=== PATIENT | male | born 1965 | race Caucasian/White ===

== ENCOUNTER → 2016-12-16 | Outpatient (REF) | payer OTHER ==
[~2016-12-16] MED LIST: ASPI81TA7 PO; ATOR40TA PO; DOCU10CA PO; LISI-542 PO; METF500T PO; OXYB5TA PO; PERC5TAB6 PO; ZOFR8TAB PO
[2016-12-16 14:34] LABS: ALBUMIN/GLOBULIN RATIO 1.18 (1.00-1.93); ALKALINE PHOSPHATASE 100 U/L (45-117); ALT/SGPT 40 U/L (12-78); ANION GAP 8 MEQ/L (8-16); AST/SGOT 12 U/L (15-37); BILIRUBIN,TOTAL 0.7 MG/DL (0.2-1.0); BLOOD UREA NITROGEN 26 MG/DL (7-18); CARBON DIOXIDE LEVEL 29 MEQ/L (21-32); CHLORIDE LEVEL 102 MEQ/L (98-107); CHOLESTEROL LEVEL 126 MG/DL (<200); CREATININE FOR GFR 1.18 MG/DL (0.70-1.30); FREE T4 1.18 NG/DL (0.76-1.46); GLOMERULAR FILTRATION RATE > 60.0 (>60); GLUCOSE, FASTING 224 MG/DL (70-105); POTASSIUM SERUM 4.7 MEQ/L (3.5-5.1); SODIUM LEVEL 139 MEQ/L (136-145); TOTAL PROTEIN 7.4 GM/DL (6.4-8.2); TRIGLYCERIDES LEVEL 101 MG/DL (<150)
== END ==
LOC: M LABDRWAD 12:42
PROVIDERS: ATTEND Physician Assistant
DX: E78.00 Pure hypercholesterolemia, unspecified (principal); E11.65 Type 2 diabetes mellitus with hyperglycemia

== ENCOUNTER → 2017-01-28 | Outpatient (REF) | payer OTHER | LOC: M SMT 12:58 | PROVIDERS: ATTEND Urology | DX: Z85.51 Personal history of malignant neoplasm of bladder (principal) ==

== ENCOUNTER → 2017-03-18 | Outpatient (REF) | payer OTHER ==
[2017-03-18 12:48] LABS: BASO % 0.4 % (0.0-1.0); EOS # 0.1 K/mm3 (0.0-0.50); EOS % 1.5 % (0.0-3.0); LARGE UNSTAINED CELL # 0.2 K/mm3 (0.0-0.4); LYMPH # 1.8 K/mm3 (1.5-4.5); LYMPH % 22.6 % (24.0-44.0); MEAN CORPUSCULAR HEMOGLOBIN 30.1 pg (27.0-33.0); MEAN CORPUSCULAR HGB CONC 34.7 g/dl (32.0-36.5); MEAN CORPUSCULAR VOLUME 86.7 fl (80.0-96.0); MONO # 0.5 K/mm3 (0.0-0.8); MONO % 6.8 % (0.0-5.0); NEUTROPHILS # 4.8 K/mm3 (1.8-7.7); NEUTROPHILS % 66.6 % (36.0-66.0); PLATELET COUNT, AUTOMATED 150 k/mm3 (150-450); RED CELL DISTRIBUTION WIDTH 12.5 % (11.5-14.5); WHITE BLOOD COUNT 7.2 K/mm3 (4.0-10.0)
[2017-03-18 13:06] LABS: ALBUMIN 4.1 GM/DL (3.2-5.2); ALBUMIN/GLOBULIN RATIO 1.28 (1.00-1.93); ALKALINE PHOSPHATASE 99 U/L (45-117); ALT/SGPT 58 U/L (12-78); ANION GAP 6 MEQ/L (8-16); AST/SGOT 28 U/L (15-37); BILIRUBIN,TOTAL 0.6 MG/DL (0.2-1.0); BLOOD UREA NITROGEN 27 MG/DL (7-18); CALCIUM LEVEL 8.7 MG/DL (8.5-10.1); CARBON DIOXIDE LEVEL 27 MEQ/L (21-32); CHLORIDE LEVEL 102 MEQ/L (98-107); CHOLESTEROL LEVEL 92 MG/DL (<200); CREATININE FOR GFR 1.08 MG/DL (0.70-1.30); GLOMERULAR FILTRATION RATE > 60.0 (>56); GLUCOSE, FASTING 100 MG/DL (70-105); POTASSIUM SERUM 4.4 MEQ/L (3.5-5.1); SODIUM LEVEL 135 MEQ/L (136-145); TOTAL PROTEIN 7.3 GM/DL (6.4-8.2); TRIGLYCERIDES LEVEL 101 MG/DL (<150)
== END ==
LOC: M LABDRWAD 12:14
PROVIDERS: ATTEND Family Medicine
DX: E11.9 Type 2 diabetes mellitus without complications (principal); I10 Essential (primary) hypertension; E78.00 Pure hypercholesterolemia, unspecified

== ENCOUNTER 2017-06-17 09:51 | Outpatient (CLI) | payer OTHER ==
[~2017-06-17] VITALS: Ht 175.3 cm; Wt 93.0 kg
[~2017-06-17 09:51] MED LIST changes: +ASPI1TAB15 PO; -ASPI81TA7 PO; -ATOR40TA PO; +ATOR40TA75 PO; +JANU100T PO; +JARD1TAB PO; +METF10004 PO; -METF500T PO; +METF500T13 PO; -OXYB5TA PO; +OXYB5TAB10 PO; +PERC5TAB12 PO; -PERC5TAB6 PO
[2017-06-17] MEDS ORDERED: LR 1,000 ML IV SCH (10:00)
[2017-06-17] MEDS ORDERED: PROPOFOL 200 MG/20 ML VIAL As Ordered ONE ×3 (10:42→11:10)
--- NOTE | 2017-06-17 11:25 | ROOR ---
Patient Name: Vikas Ford Procedure Date: 06/17/2017 10:39 AM Date of : 1965 Age: 52 Room: [facility] Gender: Male Note Status: Finalized Procedure: Colonoscopy Indications: Screening for colorectal malignant neoplasm, This is the patient's first colonoscopy Providers: Bradford Mcgrath MD Referring MD: Terrie MONTANA DO Requesting Provider: Medicines: Monitored Anesthesia Care Complications: No immediate complications. Procedure: Pre-Anesthesia Assessment: - Prior to the procedure, a History and Physical was performed, and patient medications and allergies were reviewed. The patient is competent. The risks and benefits of the procedure and the sedation options and risks were discussed with the patient. All questions were answered and informed consent was obtained. Patient identification and proposed procedure were verified by the physician, the nurse and the anesthesiologist in the procedure room. Mental Status Examination: alert and oriented. Airway Examination: normal oropharyngeal airway and neck mobility. CV Examination: regular rate and rhythm. Prophylactic Antibiotics: The patient does not require prophylactic antibiotics. Prior Anticoagulants: The patient has taken no previous anticoagulant or antiplatelet agents. ASA Grade Assessment: III - A patient with severe systemic disease. After reviewing the risks and benefits, the patient was deemed in satisfactory condition to undergo the procedure. The anesthesia plan was to use monitored anesthesia care (MAC). Immediately prior to administration of medications, the patient was re-assessed for adequacy to receive sedatives. The heart rate, respiratory rate, oxygen saturations, blood pressure, adequacy of pulmonary ventilation, and response to care were monitored throughout the procedure. The physical status of the patient was re-assessed after the procedure. The Colonoscope was introduced through the anus and advanced to the cecum, identified by appendiceal orifice and ileocecal valve. The colonoscopy was somewhat difficult due to a tortuous colon. The patient tolerated the procedure well. The quality of the bowel preparation was good. Findings: The perianal and digital rectal examinations were normal. Two sessile polyps were found in the distal ascending colon. The polyps were small in size. These polyps were removed with a hot snare. Resection and retrieval were complete. Estimated blood loss: none. A 3 mm polyp was found at 30 cm proximal to the anus. The polyp was sessile. Fulguration to ablate the lesion by snare was successful. A 6 mm polyp was found at 30 cm proximal to the anus. The polyp was semi-pedunculated. The polyp was removed with a hot snare. Resection and retrieval were complete. Estimated blood loss: none. A 4 mm polyp was found in the rectum. The polyp was sessile. The polyp was removed with a hot snare. Resection and retrieval were complete. Impression: - Two small polyps in the distal ascending colon, removed with a hot snare. Resected and retrieved. - One 3 mm polyp at 30 cm proximal to the anus. Treated with a hot snare. - One 6 mm polyp at 30 cm proximal to the anus, removed with a hot snare. Resected and retrieved. - One 4 mm polyp in the rectum, removed with a hot snare. Resected and retrieved. Recommendation: - Await pathology results. - Telephone endoscopist for pathology results in 1 week. Bradford Mcgrath MD 06/17/2017 11:25:06 AM Number of Addenda: 0 Note Initiated On: 06/17/2017 10:39 AM Estimated Blood Loss: Estimated blood loss: none.
[2017-06-17 11:40] VITALS: BP 120/82
== END 2017-06-17 11:46 | disposition home or self-care (01) ==
LOC: M OPP 09:51
PROVIDERS: ATTEND Surgery
DX: Z12.11 Encounter for screening for malignant neoplasm of colon (principal); D12.2 Benign neoplasm of ascending colon; D12.5 Benign neoplasm of sigmoid colon; K62.1 Rectal polyp; I10 Essential (primary) hypertension; E78.5 Hyperlipidemia, unspecified; E11.9 Type 2 diabetes mellitus without complications; R06.83 Snoring; Z85.51 Personal history of malignant neoplasm of bladder; Z92.21 Personal history of antineoplastic chemotherapy; Z87.891 Personal history of nicotine dependence; G47.30 Sleep apnea, unspecified; Z79.82 Long term (current) use of aspirin; Z79.84 Long term (current) use of oral hypoglycemic drugs; Z79.899 Other long term (current) drug therapy

== ENCOUNTER → 2017-11-10 | Outpatient (CLI) | payer OTHER ==
[2017-11-10 13:36] LABS: BASO % 0.3 % (0.0-1.0); EOS # 0.1 10^3/uL (0.0-0.50); EOS % 1.5 % (0.0-3.0); HEMATOCRIT 49.6 % (42.0-52.0); HEMOGLOBIN 16.8 g/dl (14.0-18.0); IMMATURE GRANULOCYTE % 0.2 % (0-0); LYMPH # 1.9 10^3/uL (1.5-4.5); LYMPH % 29.3 % (24.0-44.0); MEAN CORPUSCULAR HEMOGLOBIN 29.2 pg (27.0-33.0); MEAN CORPUSCULAR HGB CONC 33.9 g/dl (32.0-36.5); MEAN CORPUSCULAR VOLUME 86.1 fl (80.0-96.0); MONO # 0.6 10^3/uL (0.0-0.8); MONO % 8.5 % (0.0-5.0); NEUTROPHILS # 3.9 10^3/uL (1.8-7.7); NEUTROPHILS % 60.2 % (36.0-66.0); PLATELET COUNT, AUTOMATED 159 10^3/uL (150-450); RED BLOOD COUNT 5.76 10^6/uL (4.30-6.10); RED CELL DISTRIBUTION WIDTH 11.8 % (11.5-14.5); WHITE BLOOD COUNT 6.5 10^3/uL (4.0-10.0)
[2017-11-10 13:51] LABS: ALBUMIN 4.1 GM/DL (3.2-5.2); ALBUMIN/GLOBULIN RATIO 1.24 (1.00-1.93); ALKALINE PHOSPHATASE 102 U/L (45-117); ALT/SGPT 34 U/L (12-78); ANION GAP 7 MEQ/L (8-16); AST/SGOT 11 U/L (7-37); BILIRUBIN,TOTAL 0.7 MG/DL (0.2-1.0); BLOOD UREA NITROGEN 26 MG/DL (7-18); CALCIUM LEVEL 8.4 MG/DL (8.5-10.1); CARBON DIOXIDE LEVEL 27 MEQ/L (21-32); CHLORIDE LEVEL 103 MEQ/L (98-107); CHOLESTEROL LEVEL 191 MG/DL (<200); CHOLESTEROL RISK RATIO 5.026 (<5); CREATININE FOR GFR 1.04 MG/DL (0.70-1.30); GLOMERULAR FILTRATION RATE > 60.0 (>56); GLUCOSE, FASTING 260 MG/DL (70-100); HDL CHOLESTEROL 38 MG/DL (>40); NON-HDL-C 153 MG/DL; POTASSIUM SERUM 4.7 MEQ/L (3.5-5.1); SODIUM LEVEL 137 MEQ/L (136-145); TOTAL PROTEIN 7.4 GM/DL (6.4-8.2); TRIGLYCERIDES LEVEL 105 MG/DL (<150)
[2017-11-10 13:58] LABS: ESTIMATED AVERAGE GLUCOSE 214 MG/DL (60-110); HEMOGLOBIN A1c 9.1 %
== END ==
LOC: M SMT 08:51
DX: E11.65 Type 2 diabetes mellitus with hyperglycemia (principal)

== ENCOUNTER → 2018-01-21 | Outpatient (REF) | payer OTHER | LOC: M SMT 17:17 | DX: Z85.51 Personal history of malignant neoplasm of bladder (principal) | CPT/HCPCS: 88108 ==

== ENCOUNTER → 2018-02-09 | Outpatient (CLI) | payer OTHER ==
[2018-02-09 14:13] LABS: ANION GAP 7 MEQ/L (8-16); BLOOD UREA NITROGEN 26 MG/DL (7-18); CALCIUM LEVEL 8.4 MG/DL (8.5-10.1); CARBON DIOXIDE LEVEL 26 MEQ/L (21-32); CHLORIDE LEVEL 105 MEQ/L (98-107); CREATININE FOR GFR 1.06 MG/DL (0.70-1.30); GLOMERULAR FILTRATION RATE > 60.0 (>56); GLUCOSE, FASTING 118 MG/DL (70-100); POTASSIUM SERUM 4.5 MEQ/L (3.5-5.1); SODIUM LEVEL 138 MEQ/L (136-145)
[2018-02-09 14:42] LABS: CREATININE, URINE 62.5 MG/DL; MALB URINE SIEMENS 13.5 MG/L; MAU/CREAT RATIO 21.6 MCG/MG (0.0-30.0)
[2018-02-09 15:01] LABS: ESTIMATED AVERAGE GLUCOSE 154 MG/DL (60-110)
== END ==
LOC: M SMT 08:38
DX: E11.65 Type 2 diabetes mellitus with hyperglycemia (principal)
CPT/HCPCS: 83036

== ENCOUNTER 2018-05-10 04:42 | Emergency (ER) | payer OTHER ==
[2018-05-10] MEDS ORDERED: diphenhydrAMINE INJ 50MG/ML VIAL (J1200) As Ordered (04:44)
[2018-05-10] MEDS: diphenhydrAMINE INJ 50MG/ML VIAL (J1200) IV (05:04)
[2018-05-10] MEDS: dexameTHASONE 20 MG/5 ML VIAL (J1100) IV ×2 (05:05→05:27)
== END 2018-05-10 07:10 | disposition home or self-care (01) ==
LOC: M ED 04:42
DX: T78.3XXA Angioneurotic edema, initial encounter (principal); R22.0 Localized swelling, mass and lump, head; I10 Essential (primary) hypertension; Z79.899 Other long term (current) drug therapy; Z79.82 Long term (current) use of aspirin; Z79.84 Long term (current) use of oral hypoglycemic drugs
CPT/HCPCS: J1200

== ENCOUNTER → 2018-07-03 | Outpatient (REF) | payer OTHER | LOC: M LAB REF 15:56 | DX: D48.5 Neoplasm of uncertain behavior of skin (principal) ==

== ENCOUNTER → 2018-07-23 | Outpatient (REF) | payer OTHER | LOC: M SMT 13:11 | DX: C67.9 Malignant neoplasm of bladder, unspecified (principal) | CPT/HCPCS: 88108 ==

== ENCOUNTER → 2018-10-12 | Outpatient (REF) | payer OTHER ==
[~2018-10-12] MED LIST changes: -ZOFR8TAB PO; +ZOFR8TAB24 PO
[2018-10-12 13:07] LABS: BASO % 0.3 % (0.0-1.0); EOS # 0.1 10^3/uL (0.0-0.50); HEMATOCRIT 49.2 % (42.0-52.0); HEMOGLOBIN 16.3 g/dl (13.5-17.5); LYMPH # 1.2 10^3/uL (1.5-4.5); LYMPH % 16.3 % (24.0-44.0); MEAN CORPUSCULAR HEMOGLOBIN 28.5 pg (27.0-33.0); MEAN CORPUSCULAR HGB CONC 33.1 g/dl (32.0-36.5); MONO # 0.8 10^3/uL (0.0-0.8); MONO % 10.6 % (0.0-5.0); NEUTROPHILS # 5.2 10^3/uL (1.8-7.7); NEUTROPHILS % 71.5 % (36.0-66.0); PLATELET COUNT, AUTOMATED 141 10^3/uL (150-450); RED BLOOD COUNT 5.72 10^6/uL (4.30-6.10); WHITE BLOOD COUNT 7.3 10^3/uL (4.0-10.0)
[2018-10-12 13:11] LABS: ALBUMIN 3.8 GM/DL (3.2-5.2); ALT/SGPT 30 U/L (12-78); BILIRUBIN,TOTAL 1.3 MG/DL (0.2-1.0); BLOOD UREA NITROGEN 17 MG/DL (7-18); CALCIUM LEVEL 8.6 MG/DL (8.5-10.1); CARBON DIOXIDE LEVEL 26 MEQ/L (21-32); CHLORIDE LEVEL 102 MEQ/L (98-107); CHOLESTEROL LEVEL 188 MG/DL (<200); CHOLESTEROL RISK RATIO 5.222 (<5); FREE T4 1.21 NG/DL (0.76-1.46); GLOMERULAR FILTRATION RATE > 60.0 (>56); GLUCOSE, FASTING 181 MG/DL (70-100); HDL CHOLESTEROL 36 MG/DL (>40); LDL CHOLESTEROL 135 MG/DL (<100); NON-HDL-C 152 MG/DL; POTASSIUM SERUM 4.3 MEQ/L (3.5-5.1); SODIUM LEVEL 138 MEQ/L (136-145); THYROID STIMULATING HORMONE 0.686 uIU/ML (0.358-3.740); TOTAL PROTEIN 7.5 GM/DL (6.4-8.2); TRIGLYCERIDES LEVEL 87 MG/DL (<150)
[2018-10-12 14:34] LABS: HEMOGLOBIN A1c 11.4 %
== END ==
LOC: M LABDRWAD 12:07
PROVIDERS: ATTEND Family Medicine
DX: E11.65 Type 2 diabetes mellitus with hyperglycemia (principal); E78.6 Lipoprotein deficiency

== ENCOUNTER → 2019-02-02 | Outpatient (REF) | payer OTHER | LOC: M SMT 17:15 | PROVIDERS: ATTEND Urology | DX: C67.9 Malignant neoplasm of bladder, unspecified (principal) ==

== ENCOUNTER → 2019-05-10 | Outpatient (CLI) | payer OTHER ==
[2019-05-10 10:22] LABS: BASO % 0.6 % (0.0-1.0); EOS # 0.1 10^3/uL (0.0-0.50); EOS % 2.4 % (0.0-3.0); HEMATOCRIT 47.5 % (42.0-52.0); HEMOGLOBIN 15.9 g/dl (13.5-17.5); LYMPH # 1.5 10^3/uL (1.5-4.5); MEAN CORPUSCULAR HEMOGLOBIN 29.7 pg (27.0-33.0); MEAN CORPUSCULAR HGB CONC 33.5 g/dl (32.0-36.5); MEAN CORPUSCULAR VOLUME 88.8 fl (80.0-96.0); MONO # 0.5 10^3/uL (0.0-0.8); MONO % 9.8 % (0.0-5.0); NEUTROPHILS # 3.2 10^3/uL (1.8-7.7); NEUTROPHILS % 58.8 % (36.0-66.0); PLATELET COUNT, AUTOMATED 167 10^3/uL (150-450); RED BLOOD COUNT 5.35 10^6/uL (4.30-6.10); WHITE BLOOD COUNT 5.4 10^3/uL (4.0-10.0)
[2019-05-10 10:36] LABS: HEMOGLOBIN A1c 10.3 %
[2019-05-10 10:42] LABS: ALBUMIN 3.9 GM/DL (3.2-5.2); ALT/SGPT 33 U/L (12-78); BILIRUBIN,TOTAL 0.7 MG/DL (0.2-1.0); BLOOD UREA NITROGEN 25 MG/DL (7-18); CALCIUM LEVEL 8.8 MG/DL (8.5-10.1); CARBON DIOXIDE LEVEL 28 MEQ/L (21-32); CHLORIDE LEVEL 101 MEQ/L (98-107); CHOLESTEROL LEVEL 166 MG/DL (<200); CHOLESTEROL RISK RATIO 4.882 (<5); CREATININE FOR GFR 0.98 MG/DL (0.70-1.30); GLOMERULAR FILTRATION RATE > 60.0 (>56); GLUCOSE, FASTING 281 MG/DL (70-100); HDL CHOLESTEROL 34 MG/DL (>40); LDL CHOLESTEROL 111 MG/DL (<100); NON-HDL-C 132 MG/DL; POTASSIUM SERUM 4.6 MEQ/L (3.5-5.1); SODIUM LEVEL 135 MEQ/L (136-145); TOTAL PROTEIN 7.5 GM/DL (6.4-8.2); TRIGLYCERIDES LEVEL 107 MG/DL (<150)
[2019-05-10 11:01] LABS: CREATININE, URINE 26.5 MG/DL; MALB URINE SIEMENS 21.6 MG/L; MAU/CREAT RATIO 81.5 MCG/MG (0.0-30.0)
[2019-05-11 14:07] LABS: PSA TOTAL 0.2 ng/mL (0.0-4.0)
== END ==
LOC: M SMT 09:05
PROVIDERS: ATTEND Family Medicine
DX: E11.65 Type 2 diabetes mellitus with hyperglycemia (principal); Z12.5 Encounter for screening for malignant neoplasm of prostate; E78.00 Pure hypercholesterolemia, unspecified

== ENCOUNTER → 2019-08-16 | Outpatient (REF) | payer OTHER ==
[2019-08-16 12:54] LABS: BLOOD UREA NITROGEN 20 MG/DL (7-18); CARBON DIOXIDE LEVEL 29 MEQ/L (21-32); CHLORIDE LEVEL 104 MEQ/L (98-107); CREATININE FOR GFR 0.98 MG/DL (0.70-1.30); GLOMERULAR FILTRATION RATE > 60.0 (>56); GLUCOSE, FASTING 192 MG/DL (70-100); POTASSIUM SERUM 4.8 MEQ/L (3.5-5.1); SODIUM LEVEL 139 MEQ/L (136-145)
[2019-08-16 14:03] LABS: HEMOGLOBIN A1c 8.9 %
== END ==
LOC: M LABDRWAD 12:18
PROVIDERS: ATTEND Physician Assistant
DX: E66.09 Other obesity due to excess calories (principal)

== ENCOUNTER → 2019-09-20 | Outpatient (REF) | payer OTHER | LOC: M SMT 12:36 | PROVIDERS: ATTEND Urology | DX: R39.15 Urgency of urination (principal); C67.9 Malignant neoplasm of bladder, unspecified ==

== ENCOUNTER → 2020-03-15 | Outpatient (CLI) | payer OTHER ==
[2020-03-15 09:34] LABS: BASO % 0.3 % (0.0-1.0); EOS # 0.1 10^3/uL (0.0-0.5); EOS % 2.2 % (0.0-3.0); LYMPH # 1.5 10^3/uL (1.5-5.0); LYMPH % 23.7 % (24.0-44.0); MEAN CORPUSCULAR VOLUME 85.1 fl (80.0-96.0); MONO # 0.6 10^3/uL (0.0-0.8); MONO % 8.8 % (0.0-5.0); NEUTROPHILS # 4.1 10^3/uL (1.5-8.5); NEUTROPHILS % 64.7 % (36.0-66.0); PLATELET COUNT, AUTOMATED 147 10^3/uL (150-450); RED BLOOD COUNT 5.52 10^6/uL (4.30-6.10); WHITE BLOOD COUNT 6.4 10^3/uL (4.0-10.0)
[2020-03-15 09:50] LABS: HEMOGLOBIN A1c 8.8 %
[2020-03-15 09:55] LABS: ALT/SGPT 56 U/L (12-78); BILIRUBIN,TOTAL 0.7 MG/DL (0.2-1.0); BLOOD UREA NITROGEN 22 MG/DL (7-18); CALCIUM LEVEL 8.8 MG/DL (8.5-10.1); CARBON DIOXIDE LEVEL 23 MEQ/L (21-32); CHLORIDE LEVEL 107 MEQ/L (98-107); CREATININE FOR GFR 0.97 MG/DL (0.70-1.30); GLOMERULAR FILTRATION RATE > 60.0 (>56); GLUCOSE, FASTING 166 MG/DL (70-100); POTASSIUM SERUM 4.2 MEQ/L (3.5-5.1); SODIUM LEVEL 138 MEQ/L (136-145); TOTAL PROTEIN 7.8 GM/DL (6.4-8.2)
== END ==
LOC: M LAB 08:57
PROVIDERS: ATTEND Family Medicine
DX: E11.65 Type 2 diabetes mellitus with hyperglycemia (principal); I10 Essential (primary) hypertension

== ENCOUNTER → 2020-04-03 | Outpatient (REF) | payer OTHER | LOC: M SMT 15:06 | PROVIDERS: ATTEND Urology | DX: C67.9 Malignant neoplasm of bladder, unspecified (principal) ==

== ENCOUNTER → 2020-06-26 | Outpatient (REF) | payer OTHER ==
[~2020-06-26] MED LIST changes: +ASPI-546 PO; -ASPI1TAB15 PO
[2020-06-26 14:26] LABS: HEMOGLOBIN A1c 8.5 %
[2020-06-26 14:31] LABS: BLOOD UREA NITROGEN 31 MG/DL (7-18); CALCIUM LEVEL 9.1 MG/DL (8.5-10.1); CARBON DIOXIDE LEVEL 24 MEQ/L (21-32); CHLORIDE LEVEL 105 MEQ/L (98-107); CHOLESTEROL LEVEL 127 MG/DL (<200); CHOLESTEROL RISK RATIO 3.968 (<5); CREATININE FOR GFR 1.12 MG/DL (0.70-1.30); CREATININE, URINE 67.5 MG/DL; FREE T4 1.21 NG/DL (0.76-1.46); GLOMERULAR FILTRATION RATE > 60.0 (>56); GLUCOSE, FASTING 186 MG/DL (70-100); HDL CHOLESTEROL 32 MG/DL (>40); LDL CHOLESTEROL 52 MG/DL (<100); MAU/CREAT RATIO 31.1 MCG/MG (0.0-30.0); NON-HDL-C 95 MG/DL; POTASSIUM SERUM 4.2 MEQ/L (3.5-5.1); SODIUM LEVEL 137 MEQ/L (136-145); TRIGLYCERIDES LEVEL 214 MG/DL (<150)
[2020-06-28 00:07] LABS: PSA TOTAL 0.2 ng/mL (0.0-4.0)
== END ==
LOC: M LABDRWAD 12:25
PROVIDERS: ATTEND Physician Assistant
DX: E11.65 Type 2 diabetes mellitus with hyperglycemia (principal); E78.00 Pure hypercholesterolemia, unspecified; Z12.5 Encounter for screening for malignant neoplasm of prostate

== ENCOUNTER → 2020-09-26 | Outpatient (REF) | payer OTHER ==
[2020-09-26 13:16] LABS: BLOOD UREA NITROGEN 23 MG/DL (7-18); CALCIUM LEVEL 8.9 MG/DL (8.5-10.1); CARBON DIOXIDE LEVEL 27 MEQ/L (21-32); CHLORIDE LEVEL 103 MEQ/L (98-107); CHOLESTEROL LEVEL 152 MG/DL (<200); CREATININE FOR GFR 0.98 MG/DL (0.70-1.30); FREE T4 1.26 NG/DL (0.76-1.46); GLOMERULAR FILTRATION RATE > 60.0 (>56); GLUCOSE, FASTING 152 MG/DL (70-100); HDL CHOLESTEROL 34 MG/DL (>40); LDL CHOLESTEROL 87 MG/DL (<100); NON-HDL-C 118 MG/DL; SODIUM LEVEL 138 MEQ/L (136-145); TRIGLYCERIDES LEVEL 155 MG/DL (<150)
[2020-09-26 13:24] LABS: CREATININE, URINE 29.4 MG/DL; MALB URINE SIEMENS 24.7 MG/L
[2020-09-26 15:35] LABS: HEMOGLOBIN A1c 9.5 %
== END ==
LOC: M LABDRWAD 12:16
PROVIDERS: ATTEND Physician Assistant
DX: E11.65 Type 2 diabetes mellitus with hyperglycemia (principal); E78.00 Pure hypercholesterolemia, unspecified

== ENCOUNTER → 2020-12-26 | Outpatient (CLI) | payer OTHER ==
[~2020-12-26] MED LIST changes: -LISI-542 PO; +LISI-898 PO
[2020-12-26 11:12] LABS: BLOOD UREA NITROGEN 24 MG/DL (7-18); CALCIUM LEVEL 9.1 MG/DL (8.5-10.1); CARBON DIOXIDE LEVEL 29 MEQ/L (21-32); CHLORIDE LEVEL 102 MEQ/L (98-107); CREATININE FOR GFR 0.97 MG/DL (0.70-1.30); GLOMERULAR FILTRATION RATE > 60.0 (>56); GLUCOSE, FASTING 132 MG/DL (70-100); POTASSIUM SERUM 4.5 MEQ/L (3.5-5.1); SODIUM LEVEL 137 MEQ/L (136-145)
== END ==
LOC: M PLALAB 08:43
PROVIDERS: ATTEND Physician Assistant
DX: E11.65 Type 2 diabetes mellitus with hyperglycemia (principal)

== ENCOUNTER → 2021-03-30 | Outpatient (REF) | payer OTHER ==
[2021-03-30 13:49] LABS: BASO % 0.5 % (0.0-1.0); EOS # 0.1 10^3/uL (0.0-0.5); EOS % 1.7 % (0.0-3.0); HEMATOCRIT 48.8 % (42.0-52.0); HEMOGLOBIN 16.2 g/dl (13.5-17.5); LYMPH % 26.4 % (24.0-44.0); MEAN CORPUSCULAR HEMOGLOBIN 28.8 pg (27.0-33.0); MEAN CORPUSCULAR HGB CONC 33.2 g/dl (32.0-36.5); MEAN CORPUSCULAR VOLUME 86.8 fl (80.0-96.0); MONO # 0.7 10^3/uL (0.0-0.8); MONO % 9.6 % (2.0-8.0); NEUTROPHILS # 4.6 10^3/uL (1.5-8.5); NEUTROPHILS % 61.3 % (36.0-66.0); PLATELET COUNT, AUTOMATED 151 10^3/uL (150-450); RED BLOOD COUNT 5.62 10^6/uL (4.30-6.10); WHITE BLOOD COUNT 7.5 10^3/uL (4.0-10.0)
[2021-03-30 14:11] LABS: HEMOGLOBIN A1c 8.2 %
[2021-03-30 14:17] LABS: ALBUMIN 3.9 GM/DL (3.2-5.2); ALT/SGPT 48 U/L (12-78); BILIRUBIN,TOTAL 0.7 MG/DL (0.2-1.0); BLOOD UREA NITROGEN 20 MG/DL (7-18); CARBON DIOXIDE LEVEL 25 MEQ/L (21-32); CHLORIDE LEVEL 106 MEQ/L (98-107); CHOLESTEROL LEVEL 148 MG/DL (<200); CREATININE FOR GFR 0.88 MG/DL (0.70-1.30); GLOMERULAR FILTRATION RATE > 60.0 (>56); GLUCOSE, FASTING 172 MG/DL (70-100); HDL CHOLESTEROL 37 MG/DL (>40); LDL CHOLESTEROL 93 MG/DL (<100); NON-HDL-C 111 MG/DL; SODIUM LEVEL 139 MEQ/L (136-145); TOTAL PROTEIN 7.4 GM/DL (6.4-8.2); TRIGLYCERIDES LEVEL 90 MG/DL (<150)
[2021-03-30 14:40] LABS: CREATININE, URINE 22.7 MG/DL; MALB URINE SIEMENS 11.6 MG/L; MAU/CREAT RATIO 51.1 MCG/MG (0.0-30.0)
== END ==
LOC: M LABDRWAD 12:26
PROVIDERS: ATTEND Family Medicine
DX: E11.65 Type 2 diabetes mellitus with hyperglycemia (principal); E78.00 Pure hypercholesterolemia, unspecified

== ENCOUNTER → 2021-05-28 | Outpatient (REF) | payer OTHER | LOC: M SMT 13:10 | PROVIDERS: ATTEND Urology | DX: C67.9 Malignant neoplasm of bladder, unspecified (principal) ==

== ENCOUNTER → 2021-07-02 | Outpatient (REF) | payer OTHER ==
[2021-07-02 16:10] LABS: BLOOD UREA NITROGEN 25 MG/DL (7-18); CALCIUM LEVEL 8.9 MG/DL (8.5-10.1); CARBON DIOXIDE LEVEL 28 MEQ/L (21-32); CHLORIDE LEVEL 105 MEQ/L (98-107); CREATININE FOR GFR 0.98 MG/DL (0.70-1.30); GLOMERULAR FILTRATION RATE > 60.0 (>56); GLUCOSE, FASTING 114 MG/DL (70-100); POTASSIUM SERUM 4.2 MEQ/L (3.5-5.1); SODIUM LEVEL 138 MEQ/L (136-145)
[2021-07-02 16:30] LABS: HEMOGLOBIN A1c 8.6 %
== END ==
LOC: M LABDRWAD 14:45
PROVIDERS: ATTEND Physician Assistant
DX: E78.00 Pure hypercholesterolemia, unspecified (principal); E11.65 Type 2 diabetes mellitus with hyperglycemia

== ENCOUNTER → 2022-01-28 | Outpatient (CLI) | payer OTHER ==
[~2022-01-28] MED LIST changes: -LISI-898 PO; +LISI5TAB11 PO
[2022-01-28 13:21] LABS: BASO % 0.2 % (0.0-1.0); EOS # 0.1 10^3/uL (0.0-0.5); EOS % 1.4 % (0.0-3.0); HEMATOCRIT 49.1 % (42.0-52.0); HEMOGLOBIN 16.3 g/dl (13.5-17.5); LYMPH # 1.4 10^3/uL (1.5-5.0); LYMPH % 14.5 % (24.0-44.0); MEAN CORPUSCULAR HEMOGLOBIN 29.1 pg (27.0-33.0); MEAN CORPUSCULAR HGB CONC 33.2 g/dl (32.0-36.5); MEAN CORPUSCULAR VOLUME 87.5 fl (80.0-96.0); MONO # 0.8 10^3/uL (0.0-0.8); MONO % 8.4 % (2.0-8.0); NEUTROPHILS # 7.1 10^3/uL (1.5-8.5); NEUTROPHILS % 75.1 % (36.0-66.0); PLATELET COUNT, AUTOMATED 150 10^3/uL (150-450); RED BLOOD COUNT 5.61 10^6/uL (4.30-6.10); WHITE BLOOD COUNT 9.5 10^3/uL (4.0-10.0)
[2022-01-28 14:00] LABS: ALBUMIN 4.2 GM/DL (3.2-5.2); ALT/SGPT 52 U/L (12-78); BILIRUBIN,TOTAL 1.1 MG/DL (0.2-1.0); BLOOD UREA NITROGEN 31 MG/DL (7-18); CALCIUM LEVEL 9.3 MG/DL (8.5-10.1); CARBON DIOXIDE LEVEL 26 MEQ/L (21-32); CHLORIDE LEVEL 104 MEQ/L (98-107); CREATININE FOR GFR 0.98 MG/DL (0.70-1.30); GLOMERULAR FILTRATION RATE > 60.0 (>56); GLUCOSE, FASTING 136 MG/DL (70-100); POTASSIUM SERUM 4.1 MEQ/L (3.5-5.1); SODIUM LEVEL 138 MEQ/L (136-145); TOTAL PROTEIN 7.5 GM/DL (6.4-8.2)
[2022-01-28 14:43] LABS: HEMOGLOBIN A1c 7.9 %
== END ==
LOC: M ADAMS 08:59
PROVIDERS: ATTEND Nurse Practitioner Adult Health
DX: E11.65 Type 2 diabetes mellitus with hyperglycemia (principal)

== ENCOUNTER → 2022-04-29 | Outpatient (CLI) | payer OTHER ==
[2022-04-29 14:30] LABS: BASO % 0.4 % (0.0-1.0); EOS # 0.1 10^3/uL (0.0-0.5); EOS % 0.8 % (0.0-3.0); HEMATOCRIT 48.3 % (42.0-52.0); HEMOGLOBIN 16.1 g/dl (13.5-17.5); LYMPH # 1.6 10^3/uL (1.5-5.0); LYMPH % 22.7 % (24.0-44.0); MEAN CORPUSCULAR HEMOGLOBIN 28.7 pg (27.0-33.0); MEAN CORPUSCULAR HGB CONC 33.3 g/dl (32.0-36.5); MEAN CORPUSCULAR VOLUME 86.1 fl (80.0-96.0); MONO # 0.7 10^3/uL (0.0-0.8); MONO % 9.4 % (2.0-8.0); NEUTROPHILS # 4.8 10^3/uL (1.5-8.5); NEUTROPHILS % 66.4 % (36.0-66.0); PLATELET COUNT, AUTOMATED 179 10^3/uL (150-450); RED BLOOD COUNT 5.61 10^6/uL (4.30-6.10); WHITE BLOOD COUNT 7.2 10^3/uL (4.0-10.0)
[2022-04-29 16:53] LABS: BLOOD UREA NITROGEN 23 MG/DL (7-18); CREATININE FOR GFR 1.01 MG/DL (0.70-1.30); GLOMERULAR FILTRATION RATE > 60.0 (>56); GLUCOSE, FASTING 105 MG/DL (70-100)
[2022-04-29 16:54] LABS: ALBUMIN 4.1 GM/DL (3.2-5.2); ALT/SGPT 43 IU/L (0-32); BILIRUBIN,TOTAL 0.9 MG/DL (0.2-1.0); CALCIUM LEVEL 9.5 MG/DL (8.5-10.1); CARBON DIOXIDE LEVEL 28 mmol/L (20-29); CHLORIDE LEVEL 107 MEQ/L (98-107); CHOLESTEROL LEVEL 131 MG/DL (<200); CHOLESTEROL RISK RATIO 3.046 (<5); HDL CHOLESTEROL 43 MG/DL (>40); LDL CHOLESTEROL 74.2 MG/DL (<100); NON-HDL-C 88 MG/DL; POTASSIUM SERUM 4.1 MEQ/L (3.5-5.1); SODIUM LEVEL 141 MEQ/L (136-145); TOTAL PROTEIN 7.8 GM/DL (6.4-8.2); TRIGLYCERIDES LEVEL 69 MG/DL (<150)
[2022-04-29 17:36] LABS: CREATININE, URINE 79.4 MG/DL
[2022-04-29 17:37] LABS: MALB URINE SIEMENS 21.3 MG/L; MAU/CREAT RATIO 26.8 MCG/MG (0.0-30.0)
[2022-04-30 09:57] LABS: TOTAL 25(OH) VITAMIN D 31.3 NG/ML (30.0-100.0)
[2022-04-30 10:40] LABS: HEMOGLOBIN A1c 7.9 %
== END ==
LOC: M LAB 12:49
PROVIDERS: ATTEND Nurse Practitioner Adult Health
DX: E11.65 Type 2 diabetes mellitus with hyperglycemia (principal)

== ENCOUNTER → 2022-06-03 | Outpatient (REF) | payer OTHER | LOC: M SMT 16:54 | PROVIDERS: ATTEND Urology | DX: C67.9 Malignant neoplasm of bladder, unspecified (principal) ==

== ENCOUNTER → 2022-07-17 | Outpatient (CLI) | payer OTHER ==
[2022-07-17 14:27] LABS: BASO % 0.4 % (0.0-1.0); EOS # 0.1 10^3/uL (0.0-0.5); EOS % 1.5 % (0.0-3.0); HEMATOCRIT 49.8 % (42.0-52.0); HEMOGLOBIN 16.6 g/dl (13.5-17.5); LYMPH # 1.8 10^3/uL (1.5-5.0); LYMPH % 24.8 % (24.0-44.0); MEAN CORPUSCULAR HEMOGLOBIN 28.4 pg (27.0-33.0); MEAN CORPUSCULAR HGB CONC 33.3 g/dl (32.0-36.5); MEAN CORPUSCULAR VOLUME 85.3 fl (80.0-96.0); MONO # 0.7 10^3/uL (0.0-0.8); MONO % 9.3 % (2.0-8.0); NEUTROPHILS # 4.7 10^3/uL (1.5-8.5); NEUTROPHILS % 63.6 % (36.0-66.0); PLATELET COUNT, AUTOMATED 178 10^3/uL (150-450); RED BLOOD COUNT 5.84 10^6/uL (4.30-6.10); WHITE BLOOD COUNT 7.4 10^3/uL (4.0-10.0)
[2022-07-17 15:22] LABS: ALBUMIN 4.2 GM/DL (3.2-5.2); ALT/SGPT 45 U/L (12-78); BILIRUBIN,TOTAL 0.9 MG/DL (0.2-1.0); BLOOD UREA NITROGEN 22 MG/DL (7-18); CALCIUM LEVEL 9.3 MG/DL (8.5-10.1); CARBON DIOXIDE LEVEL 24 MEQ/L (21-32); CHLORIDE LEVEL 106 MEQ/L (98-107); CREATININE FOR GFR 0.85 MG/DL (0.70-1.30); FREE T4 1.26 NG/DL (0.76-1.46); GLOMERULAR FILTRATION RATE > 60.0 (>56); GLUCOSE, FASTING 118 MG/DL (70-100); SODIUM LEVEL 137 MEQ/L (136-145); TOTAL PROTEIN 7.9 GM/DL (6.4-8.2)
[2022-07-17 15:36] LABS: HEMOGLOBIN A1c 7.9 %
== END ==
LOC: M LABDRWAD 10:24
PROVIDERS: ATTEND Nurse Practitioner Adult Health
DX: E11.65 Type 2 diabetes mellitus with hyperglycemia (principal)

== ENCOUNTER → 2022-10-25 | Outpatient (CLI) | payer OTHER ==
[~2022-10-25] MED LIST changes: +CETI-24 PO; +DULA3PEN SC; +FLUTISP NARES; +JARD1TAB3 PO; +LANTINJ4 SC; +OMEP-173 PO
[2022-10-25 15:09] LABS: ALBUMIN 4.2 G/DL (3.2-5.2); ALKALINE PHOSPHATASE 93 U/L (46-116); ALT/SGPT 50 U/L (7.0-40); AST/SGOT 24 U/L (<34); BILIRUBIN,TOTAL 1.1 MG/DL (0.3-1.2); BLOOD UREA NITROGEN 25 MG/DL (9-23); CALCIUM LEVEL 9.4 MG/DL (8.5-10.1); CARBON DIOXIDE LEVEL 26 MMOL/L (20-31); CHLORIDE LEVEL 103 MMOL/L (98-107); CHOLESTEROL LEVEL 128 MG/DL (<200); CHOLESTEROL RISK RATIO 3.47 (<5); CREATININE FOR GFR 0.86 MG/DL (0.70-1.30); GLOMERULAR FILTRATION RATE > 60.0 (>56); GLUCOSE, FASTING 106 MG/DL (60-100); HDL CHOLESTEROL 36.8 MG/DL (>40); LDL CHOLESTEROL 81.2 MG/DL (<100); NON-HDL-C 91 MG/DL; POTASSIUM SERUM 4.3 MMOL/L (3.5-5.1); SODIUM LEVEL 137 MMOL/L (136-145); THYROID STIMULATING HORMONE 1.264 uIU/ML (0.55-4.78); TOTAL PROTEIN 7.7 G/DL (5.7-8.2); TRIGLYCERIDES LEVEL 50 MG/DL (<150)
[2022-10-25 15:11] LABS: FREE T4 1.25 NG/DL (0.89-1.76)
[2022-10-25 15:35] LABS: CREATININE, URINE 19.9 MG/DL; MALB URINE SIEMENS < 3.0 MG/DL
== END ==
LOC: M LABDRWAD 09:34
PROVIDERS: ATTEND Family Medicine
DX: Z12.5 Encounter for screening for malignant neoplasm of prostate (principal); E11.65 Type 2 diabetes mellitus with hyperglycemia; E78.00 Pure hypercholesterolemia, unspecified
CPT/HCPCS: 36415; 80053; 80061; 82043; 83036; 84439; 84443; G0103

== ENCOUNTER → 2022-10-27 | Outpatient (CLI) | payer OTHER | LOC: M LABSMTC 09:43 | PROVIDERS: ATTEND Anesthesiology | DX: Z01.818 Encounter for other preprocedural examination (principal) ==

== ENCOUNTER 2022-11-01 06:55 | Day surgery (SDC) | payer OTHER ==
[~2022-11-01] VITALS: Ht 175.3 cm; Wt 94.5 kg
[~2022-11-01 06:55] MED LIST changes: +LIDOCAINE 2% 100MG/5ML SDV (FOR ANES.) As Ordered ONE; +NS 1,000 ML IV ONE; +propofoL 200 MG/20 ML VIAL As Ordered ONE
[2022-11-01 08:30] VITALS: BP 115/69
== END 2022-11-01 08:32 | disposition home or self-care (01) ==
LOC: M OPP 06:55
PROVIDERS: ATTEND Surgery
DX: Z12.11 Encounter for screening for malignant neoplasm of colon (principal); Z86.010 Personal history of colon polyps; K63.5 Polyp of colon; K64.1 Second degree hemorrhoids; Z79.02 Long term (current) use of antithrombotics/antiplatelets; Z79.4 Long term (current) use of insulin; Z79.82 Long term (current) use of aspirin; Z79.52 Long term (current) use of systemic steroids; E11.9 Type 2 diabetes mellitus without complications; Z88.8 Allergy status to other drugs, medicaments and biological substances; Z85.51 Personal history of malignant neoplasm of bladder; Z87.891 Personal history of nicotine dependence; Z92.21 Personal history of antineoplastic chemotherapy

== ENCOUNTER → 2023-01-24 | Outpatient (CLI) | payer OTHER ==
[~2023-01-24] MED LIST changes: +FLUT50SP17 NARES; -FLUTISP NARES; -LIDOCAINE 2% 100MG/5ML SDV (FOR ANES.) As Ordered ONE; -NS 1,000 ML IV ONE; -propofoL 200 MG/20 ML VIAL As Ordered ONE
[2023-01-24 06:52] LABS: BASO % 0.3 % (0.0-1.0); EOS # 0.1 10^3/uL (0.0-0.5); EOS % 1.6 % (0.0-3.0); HEMATOCRIT 49.1 % (42.0-52.0); HEMOGLOBIN 16.2 g/dl (13.5-17.5); LYMPH # 1.8 10^3/uL (1.5-5.0); LYMPH % 23.8 % (24.0-44.0); MEAN CORPUSCULAR HEMOGLOBIN 28.4 pg (27.0-33.0); MEAN CORPUSCULAR VOLUME 86.1 fl (80.0-96.0); MONO # 0.7 10^3/uL (0.0-0.8); MONO % 9.8 % (2.0-8.0); NEUTROPHILS # 4.8 10^3/uL (1.5-8.5); NEUTROPHILS % 64.2 % (36.0-66.0); PLATELET COUNT, AUTOMATED 168 10^3/uL (150-450); WHITE BLOOD COUNT 7.5 10^3/uL (4.0-10.0)
[2023-01-24 07:18] LABS: ALBUMIN 3.9 G/DL (3.2-5.2); ALKALINE PHOSPHATASE 87 U/L (46-116); ALT/SGPT 38 U/L (7.0-40); AST/SGOT 15 U/L (<34); BILIRUBIN,TOTAL 0.8 MG/DL (0.3-1.2); BLOOD UREA NITROGEN 29 MG/DL (9-23); CALCIUM LEVEL 8.8 MG/DL (8.5-10.1); CARBON DIOXIDE LEVEL 27 MMOL/L (20-31); CHLORIDE LEVEL 104 MMOL/L (98-107); CREATININE FOR GFR 0.84 MG/DL (0.70-1.30); GLOMERULAR FILTRATION RATE > 60.0 (>56); GLUCOSE, FASTING 108 MG/DL (60-100); SODIUM LEVEL 137 MMOL/L (136-145); TOTAL PROTEIN 7.4 G/DL (5.7-8.2)
[2023-01-24 07:33] LABS: HEMOGLOBIN A1c 6.1 % (4.0-6.0)
== END ==
LOC: M LAB 06:17
PROVIDERS: ATTEND Nurse Practitioner Adult Health
DX: E11.65 Type 2 diabetes mellitus with hyperglycemia (principal)

== ENCOUNTER → 2023-06-03 | Outpatient (REF) | payer OTHER | LOC: M SMT 13:09 | PROVIDERS: ATTEND Urology | DX: Z85.51 Personal history of malignant neoplasm of bladder (principal) ==

== ENCOUNTER → 2023-08-04 | Outpatient (CLI) | payer OTHER ==
[~2023-08-04] MED LIST changes: -OXYB5TAB10 PO; +OXYB5TAB11 PO
[2023-08-04 07:58] LABS: BASO % 0.5 % (0.0-1.0); EOS # 0.1 10^3/uL (0.0-0.5); EOS % 1.4 % (0.0-3.0); HEMATOCRIT 48.8 % (42.0-52.0); HEMOGLOBIN 16.6 g/dl (13.5-17.5); LYMPH # 1.4 10^3/uL (1.5-5.0); LYMPH % 23.5 % (24.0-44.0); MEAN CORPUSCULAR HEMOGLOBIN 28.9 pg (27.0-33.0); MEAN CORPUSCULAR VOLUME 84.9 fl (80.0-96.0); MONO # 0.4 10^3/uL (0.0-0.8); MONO % 7.1 % (2.0-8.0); NEUTROPHILS # 3.9 10^3/uL (1.5-8.5); PLATELET COUNT, AUTOMATED 149 10^3/uL (150-450); RED BLOOD COUNT 5.75 10^6/uL (4.30-6.10); WHITE BLOOD COUNT 5.9 10^3/uL (4.0-10.0)
[2023-08-04 08:59] LABS: HEMOGLOBIN A1c 8.6 % (4.0-6.0)
[2023-08-04 09:14] LABS: ALBUMIN 3.8 G/DL (3.2-5.2); ALKALINE PHOSPHATASE 114 U/L (46-116); ALT/SGPT 29 U/L (7.0-40); AST/SGOT 14 U/L (<34); BILIRUBIN,TOTAL 0.7 MG/DL (0.3-1.2); BLOOD UREA NITROGEN 27 MG/DL (9-23); CALCIUM LEVEL 8.6 MG/DL (8.5-10.1); CARBON DIOXIDE LEVEL 26 MMOL/L (20-31); CHLORIDE LEVEL 100 MMOL/L (98-107); CHOLESTEROL LEVEL 224 MG/DL (<200); CHOLESTEROL RISK RATIO 5.39 (<5); CREATININE FOR GFR 0.71 MG/DL (0.70-1.30); FREE T4 1.15 NG/DL (0.89-1.76); GLOMERULAR FILTRATION RATE > 60.0 (>56); GLUCOSE, FASTING 244 MG/DL (60-100); HDL CHOLESTEROL 41.5 MG/DL (>40); LDL CHOLESTEROL 156.9 MG/DL (<100); NON-HDL-C 182.5 MG/DL; POTASSIUM SERUM 4.2 MMOL/L (3.5-5.1); SODIUM LEVEL 136 MMOL/L (136-145); THYROID STIMULATING HORMONE 1.706 uIU/ML (0.55-4.78); TOTAL PROTEIN 7.1 G/DL (5.7-8.2); TRIGLYCERIDES LEVEL 128 MG/DL (<150)
[2023-08-05 14:08] LABS: PSA TOTAL 0.3 ng/mL (0.0-4.0)
== END ==
LOC: M LAB 07:14
PROVIDERS: ATTEND Nurse Practitioner Adult Health
DX: Z12.5 Encounter for screening for malignant neoplasm of prostate (principal)

== ENCOUNTER → 2023-11-01 | Outpatient (CLI) | payer OTHER ==
[~2023-11-01] MED LIST changes: -FLUT50SP17 NARES; +FLUTISP NARES
[2023-11-01 08:43] LABS: BASO % 0.3 % (0.0-1.0); EOS # 0.1 10^3/uL (0.0-0.5); EOS % 1.3 % (0.0-3.0); HEMATOCRIT 48.9 % (42.0-52.0); HEMOGLOBIN 16.3 g/dl (13.5-17.5); LYMPH # 1.7 10^3/uL (1.5-5.0); LYMPH % 21.5 % (24.0-44.0); MEAN CORPUSCULAR HEMOGLOBIN 28.6 pg (27.0-33.0); MEAN CORPUSCULAR HGB CONC 33.3 g/dl (32.0-36.5); MEAN CORPUSCULAR VOLUME 85.9 fl (80.0-96.0); MONO # 0.6 10^3/uL (0.0-0.8); MONO % 7.4 % (2.0-8.0); NEUTROPHILS # 5.3 10^3/uL (1.5-8.5); NEUTROPHILS % 69.2 % (36.0-66.0); PLATELET COUNT, AUTOMATED 167 10^3/uL (150-450); RED BLOOD COUNT 5.69 10^6/uL (4.30-6.10); WHITE BLOOD COUNT 7.7 10^3/uL (4.0-10.0)
[2023-11-01 09:10] LABS: HEMOGLOBIN A1c 7.5 % (4.0-6.0)
[2023-11-01 09:21] LABS: ALKALINE PHOSPHATASE 101 U/L (46-116); ALT/SGPT 49 U/L (7.0-40); AST/SGOT 21 U/L (<34); BLOOD UREA NITROGEN 21 MG/DL (9-23); CALCIUM LEVEL 9.7 MG/DL (8.5-10.1); CARBON DIOXIDE LEVEL 28 MMOL/L (20-31); CHLORIDE LEVEL 105 MMOL/L (98-107); CREATININE FOR GFR 0.84 MG/DL (0.70-1.30); GLOMERULAR FILTRATION RATE > 60.0 (>56); GLUCOSE, FASTING 116 MG/DL (60-100); POTASSIUM SERUM 4.4 MMOL/L (3.5-5.1); SODIUM LEVEL 136 MMOL/L (136-145); TOTAL PROTEIN 7.5 G/DL (5.7-8.2)
== END ==
LOC: M LAB 08:10
PROVIDERS: ATTEND Nurse Practitioner Adult Health
DX: E11.65 Type 2 diabetes mellitus with hyperglycemia (principal); Z12.5 Encounter for screening for malignant neoplasm of prostate

== ENCOUNTER → 2024-02-01 | Outpatient (CLI) | payer OTHER ==
[~2024-02-01] MED LIST changes: -OXYB5TAB11 PO; +OXYB5TAB14 PO
[2024-02-01 09:59] LABS: BASO % 0.3 % (0.0-1.0); EOS # 0.1 10^3/uL (0.0-0.5); EOS % 1.3 % (0.0-3.0); HEMATOCRIT 49.7 % (42.0-52.0); HEMOGLOBIN 16.8 g/dl (13.5-17.5); LYMPH # 1.7 10^3/uL (1.5-5.0); LYMPH % 22.2 % (24.0-44.0); MEAN CORPUSCULAR HEMOGLOBIN 28.8 pg (27.0-33.0); MEAN CORPUSCULAR HGB CONC 33.8 g/dl (32.0-36.5); MEAN CORPUSCULAR VOLUME 85.2 fl (80.0-96.0); MONO # 0.7 10^3/uL (0.0-0.8); MONO % 8.4 % (2.0-8.0); NEUTROPHILS # 5.3 10^3/uL (1.5-8.5); NEUTROPHILS % 67.5 % (36.0-66.0); PLATELET COUNT, AUTOMATED 168 10^3/uL (150-450); RED BLOOD COUNT 5.83 10^6/uL (4.30-6.10); WHITE BLOOD COUNT 7.9 10^3/uL (4.0-10.0)
[2024-02-01 10:21] LABS: HEMOGLOBIN A1c 7.1 % (4.0-6.0)
[2024-02-01 10:32] LABS: ALBUMIN 4.1 G/DL (3.2-5.2); ALKALINE PHOSPHATASE 94 U/L (46-116); ALT/SGPT 48 U/L (7.0-40); AST/SGOT 19 U/L (<34); BILIRUBIN,TOTAL 1.1 MG/DL (0.3-1.2); BLOOD UREA NITROGEN 23 MG/DL (9-23); CALCIUM LEVEL 9.6 MG/DL (8.5-10.1); CARBON DIOXIDE LEVEL 28 MMOL/L (20-31); CHLORIDE LEVEL 104 MMOL/L (98-107); CHOLESTEROL LEVEL 140 MG/DL (<200); CHOLESTEROL RISK RATIO 3.65 (<5); CREATININE FOR GFR 0.92 MG/DL (0.70-1.30); GLOMERULAR FILTRATION RATE > 60.0 (>56); GLUCOSE, FASTING 109 MG/DL (60-100); HDL CHOLESTEROL 38.3 MG/DL (>40); LDL CHOLESTEROL 90.5 MG/DL (<100); NON-HDL-C 101.7 MG/DL; SODIUM LEVEL 138 MMOL/L (136-145); TOTAL PROTEIN 7.4 G/DL (5.7-8.2); TRIGLYCERIDES LEVEL 56 MG/DL (<150)
[2024-02-01 10:33] LABS: THYROID STIMULATING HORMONE 1.484 uIU/ML (0.55-4.78)
[2024-02-01 10:34] LABS: FREE T4 1.17 NG/DL (0.89-1.76)
== END ==
LOC: M LAB 09:42
PROVIDERS: ATTEND Nurse Practitioner Adult Health
DX: E11.65 Type 2 diabetes mellitus with hyperglycemia (principal)

== ENCOUNTER → 2024-06-18 | Outpatient (REF) | payer OTHER | LOC: M SMT 17:31 | PROVIDERS: ATTEND Urology | DX: C67.9 Malignant neoplasm of bladder, unspecified (principal) ==

== ENCOUNTER → 2024-08-07 | Outpatient (CLI) | payer OTHER ==
[2024-08-07 10:38] LABS: BASO % 0.3 % (0.0-1.0); EOS # 0.1 10^3/uL (0.0-0.5); EOS % 1.4 % (0.0-3.0); HEMATOCRIT 50.1 % (42.0-52.0); HEMOGLOBIN 16.8 g/dl (13.5-17.5); LYMPH # 1.5 10^3/uL (1.5-5.0); LYMPH % 22.7 % (24.0-44.0); MEAN CORPUSCULAR HEMOGLOBIN 29.2 pg (27.0-33.0); MEAN CORPUSCULAR HGB CONC 33.5 g/dl (32.0-36.5); MONO # 0.7 10^3/uL (0.0-0.8); MONO % 10.8 % (2.0-8.0); NEUTROPHILS # 4.3 10^3/uL (1.5-8.5); NEUTROPHILS % 64.5 % (36.0-66.0); PLATELET COUNT, AUTOMATED 174 10^3/uL (150-450); RED BLOOD COUNT 5.76 10^6/uL (4.30-6.10); WHITE BLOOD COUNT 6.7 10^3/uL (4.0-10.0)
[2024-08-07 11:00] LABS: HEMOGLOBIN A1c 9.1 % (4.0-6.0)
[2024-08-07 11:03] LABS: CREATININE, URINE 17.8 MG/DL; MALB URINE SIEMENS < 3.0 MG/L; MAU/CREAT RATIO 16.8 MCG/MG (0.0-30.0)
[2024-08-07 11:05] LABS: ALBUMIN 4.1 G/DL (3.2-5.2); ALKALINE PHOSPHATASE 101 U/L (40-129); ALT/SGPT 39 U/L (7.0-40); AST/SGOT 11 U/L (<34); BLOOD UREA NITROGEN 23 MG/DL (9-23); CALCIUM LEVEL 9.8 MG/DL (8.5-10.1); CARBON DIOXIDE LEVEL 29 MMOL/L (20-31); CHLORIDE LEVEL 104 MMOL/L (98-107); CHOLESTEROL LEVEL 117 MG/DL (<200); CHOLESTEROL RISK RATIO 3.17 (<5); CREATININE FOR GFR 0.86 MG/DL (0.70-1.30); GLOMERULAR FILTRATION RATE > 60.0 (>56); GLUCOSE, FASTING 108 MG/DL (60-100); HDL CHOLESTEROL 36.9 MG/DL (>40); LDL CHOLESTEROL 70.7 MG/DL (<100); NON-HDL-C 80.1 MG/DL; POTASSIUM SERUM 4.3 MMOL/L (3.5-5.1); PSA SCREENING 0.25 NG/ML (< 4.00); SODIUM LEVEL 138 MMOL/L (136-145); TOTAL PROTEIN 7.7 G/DL (5.7-8.2); TRIGLYCERIDES LEVEL 47 MG/DL (<150)
[2024-08-07 11:08] LABS: THYROID STIMULATING HORMONE 1.248 uIU/ML (0.55-4.78)
[2024-08-07 11:09] LABS: FREE T4 1.34 NG/DL (0.89-1.76)
== END ==
LOC: M LAB 09:50
PROVIDERS: ATTEND Nurse Practitioner Adult Health
DX: E11.65 Type 2 diabetes mellitus with hyperglycemia (principal)

== ENCOUNTER → 2024-08-09 | Outpatient (CLI) | payer OTHER | LOC: M RAD 12:32 | PROVIDERS: ATTEND Nurse Practitioner Adult Health | DX: M25.512 Pain in left shoulder (principal) ==

== ENCOUNTER → 2024-11-07 | Outpatient (CLI) | payer OTHER ==
[2024-11-07 09:16] LABS: BASO % 0.4 % (0.0-1.0); EOS # 0.1 10^3/uL (0.0-0.5); EOS % 1.1 % (0.0-3.0); HEMATOCRIT 48.8 % (42.0-52.0); HEMOGLOBIN 16.5 g/dl (13.5-17.5); LYMPH # 1.7 10^3/uL (1.5-5.0); LYMPH % 23.3 % (24.0-44.0); MEAN CORPUSCULAR HEMOGLOBIN 28.9 pg (27.0-33.0); MEAN CORPUSCULAR HGB CONC 33.8 g/dl (32.0-36.5); MEAN CORPUSCULAR VOLUME 85.6 fl (80.0-96.0); MONO # 0.6 10^3/uL (0.0-0.8); MONO % 8.2 % (2.0-8.0); NEUTROPHILS # 4.9 10^3/uL (1.5-8.5); NEUTROPHILS % 66.6 % (36.0-66.0); PLATELET COUNT, AUTOMATED 175 10^3/uL (150-450); WHITE BLOOD COUNT 7.4 10^3/uL (4.0-10.0)
[2024-11-07 09:38] LABS: ALBUMIN 4.1 G/DL (3.2-5.2); ALKALINE PHOSPHATASE 86 U/L (40-129); ALT/SGPT 41 U/L (7.0-40); AST/SGOT 22 U/L (<34); BILIRUBIN,TOTAL 1.1 MG/DL (0.3-1.2); BLOOD UREA NITROGEN 23 MG/DL (9-23); CALCIUM LEVEL 8.9 MG/DL (8.5-10.1); CARBON DIOXIDE LEVEL 27 MMOL/L (20-31); CHLORIDE LEVEL 105 MMOL/L (98-107); CREATININE FOR GFR 0.79 MG/DL (0.70-1.30); GLOMERULAR FILTRATION RATE > 60.0 (>56); GLUCOSE, FASTING 105 MG/DL (60-100); SODIUM LEVEL 142 MMOL/L (136-145); TOTAL PROTEIN 7.5 G/DL (5.7-8.2)
[2024-11-07 09:42] LABS: HEMOGLOBIN A1c 8.7 % (4.0-6.0)
== END ==
LOC: M LAB 08:51
PROVIDERS: ATTEND Nurse Practitioner Adult Health
DX: E11.65 Type 2 diabetes mellitus with hyperglycemia (principal)

== ENCOUNTER 2025-01-09 18:19 | Emergency (ER) | payer OTHER ==
[~2025-01-09] VITALS: Ht 175.3 cm; Wt 88.5 kg
[2025-01-09 19:23] LABS: VENOUS HCO3 25.6 MMOL/L (23.0-27.0); VENOUS O2 SATURATION 92.6 % (60.0-80.0); VENOUS PARTIAL PRESSURE CO2 40.9 mmHg (38.0-50.0); VENOUS PARTIAL PRESSURE O2 65.8 mmHg (30.0-50.0); VENOUS PH 7.415 UNITS (7.330-7.430); VENOUS STANDARD HCO3 25.2 MMOL/L; VENOUS TOTAL CO2 26.9 MMOL/L (24.0-28.0)
[2025-01-09 19:26] LABS: BASO % 0.3 % (0.0-1.0); EOS # 0.1 10^3/uL (0.0-0.5); HEMATOCRIT 45.3 % (42.0-52.0); HEMOGLOBIN 15.7 g/dl (13.5-17.5); LYMPH # 1.4 10^3/uL (1.5-5.0); LYMPH % 22.2 % (24.0-44.0); MEAN CORPUSCULAR HEMOGLOBIN 29.1 pg (27.0-33.0); MEAN CORPUSCULAR HGB CONC 34.7 g/dl (32.0-36.5); MONO # 0.6 10^3/uL (0.0-0.8); MONO % 9.2 % (2.0-8.0); NEUTROPHILS % 66.1 % (36.0-66.0); PLATELET COUNT, AUTOMATED 150 10^3/uL (150-450); RED BLOOD COUNT 5.39 10^6/uL (4.30-6.10); WHITE BLOOD COUNT 6.1 10^3/uL (4.0-10.0)
[2025-01-09 19:48] LABS: KETONE, URINE AUTO RFX NEGATIVE (NEGATIVE); LEUKOCYTE ESTERASE UR AUTO RFX NEGATIVE (NEGATIVE); MUCUS, URINE RFX SMALL (NEGATIVE); NITRITE, URINE AUTO RFX NEGATIVE (NEGATIVE); RBC, URINE AUTO RFX 1 /HPF (0-3); SQUAM EPITHELIAL CELL UR AURFX 0 /HPF (0-6); WBC, URINE AUTO RFX 0 /HPF (0-3)
[2025-01-09 19:54] LABS: CK-MB VALUE MASS 2.5 NG/ML (<3.6); ETHYL ALCOHOL (ETHANOL) 0.007 % (0.000-0.010)
[2025-01-09 19:55] LABS: SALICYLATE LEVEL < 3.0 MG/DL (<30)
[2025-01-09 19:56] LABS: ALBUMIN 3.7 G/DL (3.2-5.2); ALKALINE PHOSPHATASE 77 U/L (40-129); ALT/SGPT 52 U/L (7.0-40); AST/SGOT 21 U/L (<34); BILIRUBIN,DIRECT 0.2 MG/DL (<0.4); BILIRUBIN,TOTAL 0.5 MG/DL (0.3-1.2); BLOOD UREA NITROGEN 17 MG/DL (9-23); CALCIUM LEVEL 8.3 MG/DL (8.5-10.1); CARBON DIOXIDE LEVEL 26 MMOL/L (20-31); CHLORIDE LEVEL 110 MMOL/L (98-107); CPK CREATINE PHOSPHOKINASE 103 U/L (46-171); CREATININE FOR GFR 0.75 MG/DL (0.70-1.30); GLOMERULAR FILTRATION RATE > 60.0 (>56); GLUCOSE, FASTING 121 MG/DL (60-100); MB/CK RELATIVE INDEX 2.42 (< OR =4); POTASSIUM SERUM 3.3 MMOL/L (3.5-5.1); SODIUM LEVEL 145 MMOL/L (136-145); TOTAL PROTEIN 6.8 G/DL (5.7-8.2)
[2025-01-09 19:58] LABS: THYROID STIMULATING HORMONE 2.174 uIU/ML (0.55-4.78)
[2025-01-09 20:11] LABS: AMPHETAMINES LEVEL URINE NEGATIVE (NEGATIVE); BARBITURATES URINE NEGATIVE (NEGATIVE); BENZODIAZEPINES URINE NEGATIVE (NEGATIVE); CANNABINOIDS URINE NEGATIVE (NEGATIVE); COCAINE METABOLITE URINE NEGATIVE (NEGATIVE); METHADONE URINE NEGATIVE (NEGATIVE); OPIATES URINE NEGATIVE (NEGATIVE); PHENCYCLIDINE URINE NEGATIVE (NEGATIVE)
[2025-01-09 21:14] LABS: CK-MB VALUE MASS 2.5 NG/ML (<3.6); CPK CREATINE PHOSPHOKINASE 99 U/L (46-171); MB/CK RELATIVE INDEX 2.52 (< OR =4)
[2025-01-09 22:00] VITALS: BP 112/59; TEMP 97; O2SAT 98
== END 2025-01-09 22:12 | disposition home or self-care (01) ==
LOC: EDBD 18:19 → M ED 18:19
DX: R55 Syncope and collapse (principal); E11.9 Type 2 diabetes mellitus without complications; Z88.8 Allergy status to other drugs, medicaments and biological substances; Z79.1 Long term (current) use of non-steroidal anti-inflammatories (NSAID); Z79.4 Long term (current) use of insulin; Z79.84 Long term (current) use of oral hypoglycemic drugs; Z79.899 Other long term (current) drug therapy

== ENCOUNTER → 2025-01-19 | Outpatient (CLI) | payer OTHER ==
[~2025-01-19] MED LIST changes: +PROHANCE 279.3MG/ML 15ML VIAL As Ordered ONE; +PROHANCE 279.3MG/ML 5ML VIAL As Ordered ONE
== END ==
LOC: M RAD 06:33
PROVIDERS: ATTEND Nurse Practitioner Adult Health
DX: R42 Dizziness and giddiness (principal)

== ENCOUNTER → 2025-02-05 | Outpatient (CLI) | payer OTHER ==
[~2025-02-05] MED LIST changes: -PROHANCE 279.3MG/ML 15ML VIAL As Ordered ONE; -PROHANCE 279.3MG/ML 5ML VIAL As Ordered ONE
[2025-02-05 10:11] LABS: BASO % 0.3 % (0.0-1.0); EOS % 0.5 % (0.0-3.0); HEMATOCRIT 48.6 % (42.0-52.0); HEMOGLOBIN 16.2 g/dl (13.5-17.5); LYMPH # 1.1 10^3/uL (1.5-5.0); LYMPH % 17.2 % (24.0-44.0); MEAN CORPUSCULAR HEMOGLOBIN 28.7 pg (27.0-33.0); MEAN CORPUSCULAR HGB CONC 33.3 g/dl (32.0-36.5); MONO # 0.5 10^3/uL (0.0-0.8); MONO % 8.1 % (2.0-8.0); NEUTROPHILS # 4.8 10^3/uL (1.5-8.5); NEUTROPHILS % 73.6 % (36.0-66.0); PLATELET COUNT, AUTOMATED 173 10^3/uL (150-450); RED BLOOD COUNT 5.65 10^6/uL (4.30-6.10); WHITE BLOOD COUNT 6.5 10^3/uL (4.0-10.0)
[2025-02-05 10:55] LABS: ALBUMIN 4.2 G/DL (3.2-5.2); ALKALINE PHOSPHATASE 87 U/L (40-129); ALT/SGPT 42 U/L (7.0-40); AST/SGOT 20 U/L (<34); BLOOD UREA NITROGEN 21 MG/DL (9-23); CALCIUM LEVEL 9.5 MG/DL (8.5-10.1); CARBON DIOXIDE LEVEL 30 MMOL/L (20-31); CHLORIDE LEVEL 104 MMOL/L (98-107); CHOLESTEROL LEVEL 118 MG/DL (<200); CHOLESTEROL RISK RATIO 2.99 (<5); CREATININE FOR GFR 0.91 MG/DL (0.70-1.30); GLOMERULAR FILTRATION RATE > 90.0 (>56); GLUCOSE, FASTING 109 MG/DL (60-100); HDL CHOLESTEROL 39.4 MG/DL (>40); LDL CHOLESTEROL 70.4 MG/DL (<100); NON-HDL-C 78.6 MG/DL; POTASSIUM SERUM 4.3 MMOL/L (3.5-5.1); SODIUM LEVEL 144 MMOL/L (136-145); TOTAL PROTEIN 7.6 G/DL (5.7-8.2); TRIGLYCERIDES LEVEL 41 MG/DL (<150)
[2025-02-05 11:04] LABS: HEMOGLOBIN A1c 5.8 % (4.0-6.0)
== END ==
LOC: M LAB 09:29
PROVIDERS: ATTEND Nurse Practitioner Adult Health
DX: E11.65 Type 2 diabetes mellitus with hyperglycemia (principal)

== ENCOUNTER → 2025-05-07 | Outpatient (CLI) | payer OTHER ==
[2025-05-07 09:27] LABS: BASO # 0.0 10^3/uL (0.0-0.2); BASO % 0.3 % (0.0-1.0); EOS # 0.1 10^3/uL (0.0-0.5); EOS % 1.1 % (0.0-3.0); LYMPH # 1.5 10^3/uL (1.5-5.0); LYMPH % 18.7 % (24.0-44.0); MONO # 0.6 10^3/uL (0.0-0.8); MONO % 7.4 % (2.0-8.0); NEUTROPHILS # 5.7 10^3/uL (1.5-8.5); NEUTROPHILS % 72.2 % (36.0-66.0); PLATELET COUNT, AUTOMATED 146 10^3/uL (150-450)
[2025-05-07 09:38] LABS: ESTIMATED AVERAGE GLUCOSE 111.0 MG/DL (60-110)
[2025-05-07 09:54] LABS: CALCIUM LEVEL 8.6 MG/DL (8.5-10.1); CARBON DIOXIDE LEVEL 28 MMOL/L (20-31); CHLORIDE LEVEL 104 MMOL/L (98-107); CREATININE FOR GFR 0.89 MG/DL (0.70-1.30); GLOMERULAR FILTRATION RATE > 90.0 (>56); POTASSIUM SERUM 3.8 MMOL/L (3.5-5.1); SODIUM LEVEL 143 MMOL/L (136-145)
== END ==
LOC: M LAB 08:22
PROVIDERS: ATTEND Nurse Practitioner Adult Health
DX: E11.65 Type 2 diabetes mellitus with hyperglycemia (principal)

== ENCOUNTER 2025-06-01 12:59 | Emergency (ER) | payer OTHER ==
[~2025-06-01] VITALS: Ht 175.3 cm; Wt 88.2 kg
[2025-06-01 13:47] LABS: BASO # 0.0 10^3/uL (0.0-0.2); BASO % 0.3 % (0.0-1.0); EOS # 0.1 10^3/uL (0.0-0.5); EOS % 1.6 % (0.0-3.0); LYMPH # 1.6 10^3/uL (1.5-5.0); LYMPH % 23.7 % (24.0-44.0); MONO # 0.6 10^3/uL (0.0-0.8); MONO % 9.5 % (2.0-8.0); NEUTROPHILS # 4.4 10^3/uL (1.5-8.5); NEUTROPHILS % 64.8 % (36.0-66.0); PLATELET COUNT, AUTOMATED 146 10^3/uL (150-450)
[2025-06-01] MEDS ORDERED: TIRZ7.5P SQ (14:24)
[2025-06-01] MEDS ORDERED: XARE20TA PO (14:24)
[2025-06-01] MEDS ORDERED: LOSA100T46 PO (14:24)
[2025-06-01] MEDS ORDERED: OMEP40CA5 PO (14:24)
[2025-06-01] MEDS ORDERED: HOME MED LIST COMPLETE! XX SCH (14:25)
[2025-06-01 14:26] LABS: ALT/SGPT 50 U/L (7.0-40); AST/SGOT 26 U/L (<34); CALCIUM LEVEL 9.0 MG/DL (8.5-10.1); CARBON DIOXIDE LEVEL 27 MMOL/L (20-31); CHLORIDE LEVEL 102 MMOL/L (98-107); CK-MB VALUE MASS 5.3 NG/ML (<3.6); CREATININE FOR GFR 0.88 MG/DL (0.70-1.30); GLOMERULAR FILTRATION RATE > 90.0 (>56); POTASSIUM SERUM 3.6 MMOL/L (3.5-5.1); SODIUM LEVEL 141 MMOL/L (136-145)
[2025-06-01 14:28] LABS: CPK CREATINE PHOSPHOKINASE 167 U/L (46-171); MB/CK RELATIVE INDEX 3.17 (< OR =4)
[2025-06-01 14:30] LABS: INR 1.39
[2025-06-01 15:18] LABS: CK-MB VALUE MASS 4.9 NG/ML (<3.6)
[2025-06-01 15:19] LABS: CPK CREATINE PHOSPHOKINASE 154 U/L (46-171); MB/CK RELATIVE INDEX 3.18 (< OR =4)
[2025-06-01] MEDS ORDERED: ISOVUE-370 76% 100 ML VIAL As Ordered ONE (15:27)
[2025-06-01] MEDS: NITROGLYCERIN 0.4 MG SUBL TABLET SL PRN (17:27)
[2025-06-01 17:41] VITALS: BP 125/68
[2025-06-01 17:56] VITALS: O2SAT 96
[2025-06-01 18:00] VITALS: BP 134/66; TEMP 97.1
== END 2025-06-01 18:12 | disposition short-term general hospital (02) ==
LOC: EDBD 12:59 → M ED 12:59
DX: I20.0 Unstable angina (principal); E11.9 Type 2 diabetes mellitus without complications; I10 Essential (primary) hypertension; Z85.51 Personal history of malignant neoplasm of bladder; Z86.79 Personal history of other diseases of the circulatory system; Z88.8 Allergy status to other drugs, medicaments and biological substances; Z79.899 Other long term (current) drug therapy; Z79.84 Long term (current) use of oral hypoglycemic drugs; Z79.4 Long term (current) use of insulin
CPT/HCPCS: 71045; 71275; 80048; 80076; 82550; 82553; 84484; 85025; 85610; 85730; 93005; 93041; 94760; 99285; Q9967

== ENCOUNTER → 2025-06-27 | Outpatient (REF) | payer OTHER ==
[~2025-06-27] MED LIST changes: +LOSA100T46 PO; +OMEP40CA5 PO; +TIRZ7.5P SQ; +XARE20TA PO
== END ==
LOC: M SMT 15:10
PROVIDERS: ATTEND Urology
DX: C67.9 Malignant neoplasm of bladder, unspecified (principal)